=== PATIENT | female | born 1960 | race Caucasian/White ===

== ENCOUNTER 2016-12-22 09:17 | Outpatient (CLI) | payer OTHER ==
--- NOTE | 2016-12-22 10:37 | ULT ---
CAROTID DUPLEX SONOGRAM: History: Carotid bruit bilateral. FINDINGS: Right: No significant plaque is apparent. Color and spectral doppler evaluation, peak systolic veloc ity of 131 cm/sec, and IC/CC ratio of 1.3 suggests no hemodynamically significant stenosis within th e extracranial right ICA. Antegrade flow is present within the vertebral artery. Left: Minimal plaque is present. Color and spectral doppler evaluation, peak systolic velocity of 77 cm/sec and IC/CC ratio of 0.9 suggests no hemodynamically significant stenosis within the extracran ial left ICA. Antegrade flow is present within the vertebral artery. IMPRESSION: 1. Minimal plaque. No sonographic evidence of significant extracranial ICA stenosis. POS: [facility]
== END 2016-12-22 09:18 | disposition home or self-care (01) ==
LOC: ULT 09:17
PROVIDERS: ATTEND Family Medicine
DX: I65.23 Occlusion and stenosis of bilateral carotid arteries (principal)
CPT/HCPCS: 93880

== ENCOUNTER 2017-03-24 09:30 | Outpatient (CLI) | payer OTHER ==
[~2017-03-24 09:30] MED LIST: Iopamidol 370 76% 100 ML VIAL ONE
--- NOTE | 2017-03-24 10:41 | CT ---
CT ABDOMEN AND PELVIS WITH AND WITHOUT IV CONTRAST: HISTORY: Hematuria. FINDINGS: There is a calcified granuloma in the left lower lung. The liver, spleen, pancreas, and adrenal glan ds appear normal. The patient is post cholecystectomy. No free air, free fluid, or lymphadenopathy is seen in the abdomen or pelvis. A tiny pericardial effusion is present. A small hiatal hernia is seen. A normal-appearing appendix is noted. There is sigmoid diverticulosis. Uterus is present. T here are postop changes of tubal ligation. No calculi are seen in the kidneys, ureters, or the urinary bladder. No hydroureteral nephrosis iden tified on either side. Postcontrast images demonstrate no evidence of renal mass. There is normal c ontrast excretion into the pelvicalyceal systems, ureters, and the urinary bladder. IMPRESSION: 1. No CT evidence of urinary tract calculi/obstruction or mass. 2. Small hiatal hernia. 3. Small pericardial effusion. 4. Sigmoid diverticulosis. POS: [facility]
== END 2017-03-24 09:31 | disposition home or self-care (01) ==
LOC: CT 09:30
PROVIDERS: ATTEND Family Medicine
DX: R31.9 Hematuria, unspecified (principal); K44.9 Diaphragmatic hernia without obstruction or gangrene; I31.3 Pericardial effusion (noninflammatory); K57.30 Diverticulosis of large intestine without perforation or abscess without bleeding
CPT/HCPCS: 74178